=== PATIENT | male | born 1950 | race Hispanic/Latino ===

== ENCOUNTER → 2019-03-02 | Outpatient (CLI) | payer OTHER ==
[~2019-03-02] MED LIST: CALC0.253 PO; CLOP75TA32 PO; FOLI1TAB85 PO; INS7030 SQ; ISOS30TA6 PO; LISI-617 PO; OMEP20TA25 PO; SIMV20TA6 PO; SUCR500T PO; TIMO.5OS OU
== END | disposition home or self-care (01) ==
LOC: RAH 10:53
PROVIDERS: ATTEND Internal Medicine
DX: I73.9 Peripheral vascular disease, unspecified (principal)
CPT/HCPCS: 93922

== ENCOUNTER → 2019-07-18 | Outpatient (CLI) | payer OTHER ==
[~2019-07-18] MED LIST changes: +SIMV-43 PO; -SIMV20TA6 PO
== END | disposition home or self-care (01) ==
LOC: SHCH 09:17
PROVIDERS: ATTEND Internal Medicine Cardiovascular Disease
DX: I65.23 Occlusion and stenosis of bilateral carotid arteries (principal); I35.8 Other nonrheumatic aortic valve disorders; I35.0 Nonrheumatic aortic (valve) stenosis
CPT/HCPCS: 93306; 93880

== ENCOUNTER → 2020-10-22 | Outpatient (CLI) | payer OTHER ==
[~2020-10-22] MED LIST changes: -ISOS30TA6 PO; +ISOS30TA92 PO; -LISI-617 PO; +LISI-809 PO
== END | disposition home or self-care (01) ==
LOC: SHCH 09:23
PROVIDERS: ATTEND Internal Medicine Cardiovascular Disease
DX: I31.3 Pericardial effusion (noninflammatory) (principal); I08.3 Combined rheumatic disorders of mitral, aortic and tricuspid valves
CPT/HCPCS: 93306; 93356

== ENCOUNTER 2020-12-12 07:28 | Day surgery (SDC) | payer OTHER ==
[2020-12-10 14:11] LABS: EOSINOPHILS % (AUTO) 2.6 % (0.0-8.0); HEMATOCRIT 42.6 % (42-54); MEAN CORPUSCULAR HEMOGLOBIN 31.6 pg (27.0-33.0); MEAN CORPUSCULAR HGB CONC 32.2 g/dL (32.0-36.0); MEAN CORPUSCULAR VOLUME 98.4 fL (79-99); MONOCYTES % (AUTO) 7.7 % (3.0-13.0); NEUTROPHILS % (AUTO) 74.2 % (40.0-77.0); PLATELET COUNT (AUTO) 217 K/uL (130-400); RED BLOOD CELL COUNT(AUTO) 4.33 MIL/uL (4.50-6.20); RED CELL DISTRIBUTION WIDTH 13.4 % (11.0-15.5); WHITE BLOOD COUNT (AUTO) 9.5 K/uL (4.8-10.8)
[2020-12-10 14:25] LABS: POTASSIUM 5.6 mmol/L (3.5-5.1)
[2020-12-10 14:27] LABS: CREATININE 10.3 mg/dL (0.5-1.5); PROTHROMBIN TIME 10.9 SEC (9.6-11.6)
[2020-12-10 14:29] LABS: PARTIAL THROMBOPLASTIN TIME 27.6 SEC (26.3-35.5)
[2020-12-12] VITALS (9 sets, daily range): BP systolic 119–187; BP diastolic 49–82
[~2020-12-12] VITALS: Ht 170.2 cm; Wt 94.6 kg
[~2020-12-12 07:28] MED LIST changes: +AMLO-257 PO; -CALC0.253 PO; +CLOP75TA14 PO; -CLOP75TA32 PO; -INS7030 SQ; +INSU100V37 SQ; -ISOS30TA92 PO; -LISI-809 PO; +OMEP-420 PO; -OMEP20TA25 PO; -SIMV-43 PO; -SUCR500T PO; +auryxia PO; +tylenol PO
[2020-12-12] MEDS ORDERED: SODIUM CHLORIDE 0.9% 1000ML 1,000 ML IV SCH (08:00)
[2020-12-12] MEDS ORDERED: IOHEXOL 350 MG/ML 100ML INFUS..BTL IV ONE (09:46)
[2020-12-12] MEDS ORDERED: LIDOCAINE HCL 2% 20ML ONE (09:46)
[2020-12-12] MEDS ORDERED: NITROGLYCERIN 2 MG/VIAL VIAL IV ONE (09:46)
[2020-12-12] MEDS ORDERED: IOHEXOL-350 50ML VIAL IV ONE (09:46)
[2020-12-12] MEDS ORDERED: MIDAZOLAM HCL 1 MG/ML 2ML VIAL ONE (10:48)
[2020-12-12] MEDS ORDERED: FENTANYL CITRATE PF 50 MCG/1 ML 2ML VIAL ONE (10:49)
[2020-12-12] MEDS ORDERED: LABETALOL HCL 5 MG/ML 20ML VIAL IV ONE (11:21)
[2020-12-12] MEDS ORDERED: HYDRALAZINE HCL 20 MG/ML VIAL ONE (11:28)
[2020-12-12] MEDS ORDERED: NITROGLYCERIN 4.1 GM SPRAY TL ONE (11:57)
[2020-12-12] MEDS ORDERED: DEXTROSE 50%-WATER 50 ML DISP.SYRIN IV PRN (12:45)
[2020-12-12] MEDS ORDERED: SODIUM CHLORIDE 0.9% 10 ML VIAL IVP SCH (12:45)
[2020-12-12] MEDS ORDERED: ACETAMINOPHEN EXTRA STRENGTH 500 MG TABLET ONE (14:48)
[2020-12-12] MEDS ORDERED: INSULIN HUMULIN R 100 UNIT/ML 3ML SQ SCH (16:30)
== END 2020-12-12 16:45 | disposition home or self-care (01) ==
LOC: DAH 07:28
PROVIDERS: ATTEND Internal Medicine Cardiovascular Disease
DX: I35.0 Nonrheumatic aortic (valve) stenosis (principal); I25.119 Atherosclerotic heart disease of native coronary artery with unspecified angina pectoris; E11.22 Type 2 diabetes mellitus with diabetic chronic kidney disease; I13.2 Hypertensive heart and chronic kidney disease with heart failure and with stage 5 chronic kidney disease, or end stage renal disease; N18.6 End stage renal disease; I50.33 Acute on chronic diastolic (congestive) heart failure; E11.59 Type 2 diabetes mellitus with other circulatory complications; M79.605 Pain in left leg; I25.2 Old myocardial infarction; I45.10 Unspecified right bundle-branch block; E78.5 Hyperlipidemia, unspecified; Z88.6 Allergy status to analgesic agent; Z99.2 Dependence on renal dialysis; Z79.01 Long term (current) use of anticoagulants; Z79.899 Other long term (current) drug therapy; Z98.890 Other specified postprocedural states; Z87.891 Personal history of nicotine dependence; Z82.49 Family history of ischemic heart disease and other diseases of the circulatory system; Z83.3 Family history of diabetes mellitus; Z88.8 Allergy status to other drugs, medicaments and biological substances
CPT/HCPCS: 36415; 71045; 80048; 82948 ×2; 85025; 85610; 85730; 93005; 93460; A4215; A4216; A4221; A4222; A4223 ×3; A4606; A4615; A4663; C1760; C1769 ×2; C1893; C1894 ×2; J0360; J1644; J2250; J3010; J3490 ×3; Q9965 ×2; Q9967 ×2; 99156; 99157

== ENCOUNTER 2021-02-04 18:49 | Observation (INO) | payer OTHER ==
[2021-02-04] VITALS (8 sets, daily range): BP systolic 142–180; BP diastolic 65–89
[~2021-02-04] VITALS: Ht 167.6 cm; Wt 97.1 kg
[2021-02-04] MEDS ORDERED: ASPIRIN 325MG TAB PO ONE (19:30)
[2021-02-04 19:42] LABS: BASOPHILS % (AUTO) 0.5 % (0.0-5.0); EOSINOPHILS % (AUTO) 1.5 % (0.0-8.0); MEAN CORPUSCULAR HGB CONC 32.1 g/dL (32.0-36.0); MEAN CORPUSCULAR VOLUME 99.7 fL (79-99); MONOCYTES % (AUTO) 8.3 % (3.0-13.0); NEUTROPHILS % (AUTO) 78.3 % (40.0-77.0); PLATELET COUNT (AUTO) 206 K/uL (130-400); RED BLOOD CELL COUNT(AUTO) 3.91 MIL/uL (4.50-6.20); RED CELL DISTRIBUTION WIDTH 12.7 % (11.0-15.5); WHITE BLOOD COUNT (AUTO) 10.3 K/uL (4.8-10.8)
[2021-02-04 19:54] LABS: INR 0.97 (0.85-1.15); PROTHROMBIN TIME 10.6 SEC (9.6-11.6)
[2021-02-04 20:06] LABS: B-TYPE NATRIURETIC PEPTIDE 1250 pg/mL (0-100)
[2021-02-04 20:17] LABS: ALBUMIN 3.7 g/dL (3.5-5.0); BILIRUBIN,TOTAL 0.3 mg/dL (0.2-1.0); MAGNESIUM 2.2 mg/dL (1.80-2.40); TOTAL PROTEIN, SERUM 7.9 g/dL (6.0-8.3)
[2021-02-04 20:27] LABS: CREATININE 10.4 mg/dL (0.5-1.5)
[2021-02-04] MEDS ORDERED: NITROGLYCERIN 1GM OINT 1 INCH/1GM TD ONE (20:30)
[2021-02-04 20:54] LABS: ABG BASE EXCESS -2.3 mmol/L (-2.0-3.0); ABG OXYGEN SATURATION 93.3 % (95.0-99.0); ABG PCO2 42 mmHg (35-48)
[2021-02-04] MEDS: FUROSEMIDE 40MG VIAL IVP SCH (21:00)
[2021-02-04] MEDS ORDERED: 0.9%NACL 1000ML 1,000 ML IV ONE (22:17)
[2021-02-05] VITALS (21 sets, daily range): BP systolic 126–177; BP diastolic 62–88
[2021-02-05] MEDS ORDERED: NITROGLYCERIN 0.4 MG SL TAB SL PRN (04:00)
[2021-02-05] MEDS ORDERED: NITR0.4T50 SL (04:05)
[2021-02-05] MEDS ORDERED: DULA0.75 SQ (04:05)
[2021-02-05] MEDS ORDERED: TIMO1DRO5 OP (04:05)
[2021-02-05] MEDS ORDERED: SIMV-43 PO (04:05)
[2021-02-05] MEDS ORDERED: AURYXIA PO (04:05)
[2021-02-05] MEDS ORDERED: OMEP20CA12 PO (04:05)
[2021-02-05] MEDS ORDERED: AMLO-257 PO (04:05)
[2021-02-05] MEDS ORDERED: FOLI1TAB85 PO (04:05)
[2021-02-05] MEDS ORDERED: CLOP75TA14 PO (04:05)
[2021-02-05] MEDS ORDERED: INSU200I4 SQ (04:05)
[2021-02-05 06:29] LABS: BASOPHILS % (AUTO) 0.5 % (0.0-5.0); EOSINOPHILS % (AUTO) 2.1 % (0.0-8.0); HEMATOCRIT 39.4 % (42-54); LYMPHOCYTES % (AUTO) 14.2 % (21.0-51.0); MEAN CORPUSCULAR HEMOGLOBIN 31.9 pg (27.0-33.0); MEAN CORPUSCULAR HGB CONC 32.2 g/dL (32.0-36.0); MONOCYTES % (AUTO) 7.8 % (3.0-13.0); PLATELET COUNT (AUTO) 194 K/uL (130-400); RED BLOOD CELL COUNT(AUTO) 3.98 MIL/uL (4.50-6.20); RED CELL DISTRIBUTION WIDTH 12.6 % (11.0-15.5); WHITE BLOOD COUNT (AUTO) 11.3 K/uL (4.8-10.8)
[2021-02-05 06:41] LABS: ALBUMIN 3.8 g/dL (3.5-5.0); BILIRUBIN,TOTAL 0.3 mg/dL (0.2-1.0); POTASSIUM 4.6 mmol/L (3.5-5.1); TOTAL PROTEIN, SERUM 8.2 g/dL (6.0-8.3)
[2021-02-05 06:47] LABS: CREATININE 8.8 mg/dL (0.5-1.5)
[2021-02-05] MEDS ORDERED: TIMOLOL MALEATE 0.5% 5 ML BOTTLE OP SCH (09:00)
[2021-02-05] MEDS ORDERED: AMLODIPINE 5 MG TAB PO SCH (09:00)
[2021-02-05] MEDS ORDERED: **HM** TRULICITY 0.75MG SQ SCH (09:00)
[2021-02-05] MEDS ORDERED: PANTOPRAZOLE 40 MG TAB DR PO SCH (09:00)
[2021-02-05] MEDS ORDERED: TRESIBA 50 UNIT SQ SCH (09:00)
[2021-02-05] MEDS ORDERED: CLOPIDOGREL 75MG TAB PO SCH (09:00)
[2021-02-05] MEDS ORDERED: Vitamin B Complex/Vit C/Folic Acid PO SCH (09:00)
[2021-02-05] MEDS: AURYXIA 210 MG PO SCH ×2 (09:08→13:42)
[2021-02-05] MEDS: FUROSEMIDE 40MG VIAL IVP SCH (09:08)
[2021-02-05] MEDS ORDERED: SIMVASTATIN 20 MG TABLET PO SCH (21:00)
[2021-02-10] MEDS ORDERED: AURYXIA PO (14:01)
== END 2021-02-05 15:17 | disposition home or self-care (01) ==
LOC: EDH 18:49 → EDHIP 20:50 → INTOOBSV 20:50 → 3DH 02-05 01:46 → EDHIP 02-05 01:51
PROVIDERS: ADMIT Internal Medicine; ATTEND Internal Medicine
DX: J96.01 Acute respiratory failure with hypoxia (principal); Z20.822 Contact with and (suspected) exposure to COVID-19; E87.70 Fluid overload, unspecified; I12.0 Hypertensive chronic kidney disease with stage 5 chronic kidney disease or end stage renal disease; E11.22 Type 2 diabetes mellitus with diabetic chronic kidney disease; N18.6 End stage renal disease; D63.1 Anemia in chronic kidney disease; I25.10 Atherosclerotic heart disease of native coronary artery without angina pectoris; E83.39 Other disorders of phosphorus metabolism; I35.0 Nonrheumatic aortic (valve) stenosis; J81.1 Chronic pulmonary edema; E78.00 Pure hypercholesterolemia, unspecified; K21.9 Gastro-esophageal reflux disease without esophagitis; Z99.2 Dependence on renal dialysis; Z79.899 Other long term (current) drug therapy; Z79.4 Long term (current) use of insulin; Z87.891 Personal history of nicotine dependence; Z87.19 Personal history of other diseases of the digestive system
CPT/HCPCS: 36415 ×2; 36600; 71045; 80053 ×2; 80061; 82550; 82803; 83735; 83874; 83880; 84484; 85025 ×2; 85610; 87635; 87804 ×2; 93005; 96374; 99285; C9803; G0378 ×15; J1940; J7030; 90935

== ENCOUNTER 2021-02-11 06:33 | Observation (INO) | payer OTHER ==
[2021-02-06 10:55] LABS: BASOPHILS % (AUTO) 0.8 % (0.0-5.0); EOSINOPHILS % (AUTO) 2.5 % (0.0-8.0); HEMATOCRIT 40.1 % (42-54); LYMPHOCYTES % (AUTO) 11.8 % (21.0-51.0); MEAN CORPUSCULAR HEMOGLOBIN 31.9 pg (27.0-33.0); MEAN CORPUSCULAR HGB CONC 32.2 g/dL (32.0-36.0); MEAN CORPUSCULAR VOLUME 99.3 fL (79-99); MONOCYTES % (AUTO) 9.2 % (3.0-13.0); NEUTROPHILS % (AUTO) 75.1 % (40.0-77.0); PLATELET COUNT (AUTO) 201 K/uL (130-400); RED BLOOD CELL COUNT(AUTO) 4.04 MIL/uL (4.50-6.20); RED CELL DISTRIBUTION WIDTH 12.6 % (11.0-15.5); WHITE BLOOD COUNT (AUTO) 10.1 K/uL (4.8-10.8)
[2021-02-06 11:02] LABS: POTASSIUM 4.7 mmol/L (3.5-5.1)
[2021-02-06 11:08] LABS: CREATININE 8.5 mg/dL (0.5-1.5)
[2021-02-06 11:16] LABS: PROTHROMBIN TIME 10.9 SEC (9.6-11.6)
[2021-02-06 11:17] LABS: PARTIAL THROMBOPLASTIN TIME 27.9 SEC (26.3-35.5)
[2021-02-10 12:43] VITALS: BP 150/74
[~2021-02-11] VITALS: Ht 170.2 cm; Wt 93.8 kg
[2021-02-11] VITALS (11 sets, daily range): BP systolic 122–195; BP diastolic 60–91
[~2021-02-11 06:33] MED LIST changes: +AURYXIA PO; +DULA0.75 SQ; +NITR0.4T50 SL; +SIMV-43 PO; -TIMO.5OS OU; +TIMO1DRO5 OP; -auryxia PO; -tylenol PO
[2021-02-11] MEDS ORDERED: IOHEXOL 350 MG/ML 100ML INFUS..BTL IV ONE ×2 (07:16→09:08)
[2021-02-11] MEDS ORDERED: BIVALIRUDIN 250 MG/VIAL IV ONE ×2 (07:16→09:07)
[2021-02-11] MEDS ORDERED: NITROGLYCERIN 2 MG VIAL IV ONE (07:16)
[2021-02-11] MEDS ORDERED: MIDAZOLAM HCL 1 MG/ML 2ML VIAL ONE (07:17)
[2021-02-11] MEDS ORDERED: LIDOCAINE HCL 400MG/20ML VIAL ONE (07:17)
[2021-02-11] MEDS ORDERED: 0.9%NACL 1000ML 1,000 ML IV ONE (07:59)
[2021-02-11] MEDS ORDERED: ASPIRIN 325MG EC TAB PO ONE (08:41)
[2021-02-11] MEDS ORDERED: IOHEXOL-350 50ML VIAL IV ONE (09:48)
[2021-02-11] MEDS ORDERED: LABETALOL 20MG VIAL IV ONE (09:55)
[2021-02-11] MEDS ORDERED: CLOPIDOGREL 300MG TAB ONE (09:57)
[2021-02-11] MEDS ORDERED: LABETALOL 20MG VIAL IV PRN (10:30)
[2021-02-11] MEDS ORDERED: GLUCAGON 1MG KIT 1 MG ML IM PRN (10:30)
[2021-02-11] MEDS ORDERED: DEXTROSE 50%-WATER 50 ML DISP.SYRIN IV PRN (10:30)
[2021-02-11] MEDS ORDERED: NITROGLYCERIN 0.4 MG SL TAB SL PRN (11:00)
[2021-02-11] MEDS: INSULIN HUMULIN R 100 UNIT/ML 3ML SQ SCH ×3 (11:30→21:00)
[2021-02-11] MEDS ORDERED: DIPHENHYDRAMINE HCL 25 MG CAPSULE PO PRN (20:00)
[2021-02-11] MEDS: AURYXIA PO SCH (21:00)
[2021-02-11] MEDS ORDERED: SIMVASTATIN 20 MG TABLET PO SCH (21:00)
[2021-02-11] MEDS: TIMOLOL MALEATE 0.5% 5 ML BOTTLE OP SCH (21:10)
[2021-02-12] VITALS (18 sets, daily range): BP systolic 126–181; BP diastolic 62–93
[2021-02-12 04:09] LABS: MEAN CORPUSCULAR HEMOGLOBIN 31.9 pg (27.0-33.0); MEAN CORPUSCULAR HGB CONC 32.9 g/dL (32.0-36.0); RED BLOOD CELL COUNT(AUTO) 3.61 MIL/uL (4.50-6.20); WHITE BLOOD COUNT (AUTO) 11.5 K/uL (4.8-10.8)
[2021-02-12 04:25] LABS: POTASSIUM 5.6 mmol/L (3.5-5.1)
[2021-02-12 04:29] LABS: CREATININE 11.3 mg/dL (0.5-1.5)
[2021-02-12] MEDS: INSULIN HUMULIN R 100 UNIT/ML 3ML SQ SCH ×2 (06:04→11:30)
[2021-02-12] MEDS ORDERED: INSULIN DEGLUDEC SQ SCH (09:00)
[2021-02-12] MEDS ORDERED: AMLODIPINE 5 MG TAB PO SCH (09:00)
[2021-02-12] MEDS ORDERED: CLOPIDOGREL 75MG TAB PO SCH (09:00)
[2021-02-12] MEDS ORDERED: Vitamin B Complex/Vit C/Folic Acid PO SCH (09:00)
[2021-02-12] MEDS ORDERED: PANTOPRAZOLE 40 MG TAB DR PO SCH (09:00)
[2021-02-12] MEDS: AURYXIA PO SCH (09:00)
[2021-02-12] MEDS ORDERED: ASPIRIN 81 MG EC TAB PO SCH (09:00)
[2021-02-12] MEDS: TIMOLOL MALEATE 0.5% 5 ML BOTTLE OP SCH (09:00)
[2021-02-12] MEDS ORDERED: 0.9%NACL 1000ML 1,000 ML IV SCH (10:00)
[2021-02-13 08:14] LABS: HEPATITIS Bs ANTIGEN SCREEN P Negative (Negative)
[2021-02-18] MEDS ORDERED: DULAGLUTIDE 0.75 MG SQ SCH (09:00)
== END 2021-02-12 15:00 | disposition home or self-care (01) ==
LOC: DAH 06:33 → DAHIP 06:34 → DAH 06:34 → 4DH 13:06
PROVIDERS: ADMIT Internal Medicine; ATTEND Internal Medicine
DX: I25.119 Atherosclerotic heart disease of native coronary artery with unspecified angina pectoris (principal); I35.0 Nonrheumatic aortic (valve) stenosis; I12.0 Hypertensive chronic kidney disease with stage 5 chronic kidney disease or end stage renal disease; I50.33 Acute on chronic diastolic (congestive) heart failure; N18.6 End stage renal disease; E11.22 Type 2 diabetes mellitus with diabetic chronic kidney disease; D63.1 Anemia in chronic kidney disease; K21.9 Gastro-esophageal reflux disease without esophagitis; E11.65 Type 2 diabetes mellitus with hyperglycemia; E78.5 Hyperlipidemia, unspecified; E01.0 Iodine-deficiency related diffuse (endemic) goiter; E87.1 Hypo-osmolality and hyponatremia; E87.5 Hyperkalemia; Z95.5 Presence of coronary angioplasty implant and graft; Z79.4 Long term (current) use of insulin; Z99.2 Dependence on renal dialysis; Z79.899 Other long term (current) drug therapy
CPT/HCPCS: 36415 ×2; 71045; 80048 ×2; 82948 ×6; 85025; 85027; 85610; 85730; 86704; 86706; 87340; 93005; 93454; 96360; 96361 ×2; A4215; A4216; A4221; A4222; A4223 ×3; A4606; A4663; C1725; C1760; C1761; C1769 ×2; C1874 ×3; C1887 ×2; C1894 ×3; C9600 ×2; G0378 ×25; J0583 ×2; J1644; J2250; J3490 ×3; J7030; Q0163; Q9965 ×2; Q9967 ×3; 90935; 99156; 99157

== ENCOUNTER → 2021-07-22 | Outpatient (CLI) | payer OTHER | END | disposition home or self-care (01) | LOC: SHCH 08:20 | PROVIDERS: ATTEND Internal Medicine Cardiovascular Disease | DX: I08.2 Rheumatic disorders of both aortic and tricuspid valves (principal); I31.3 Pericardial effusion (noninflammatory); I11.9 Hypertensive heart disease without heart failure; I25.10 Atherosclerotic heart disease of native coronary artery without angina pectoris; E11.9 Type 2 diabetes mellitus without complications; E78.5 Hyperlipidemia, unspecified; Z95.4 Presence of other heart-valve replacement | CPT/HCPCS: 93306 ==